=== PATIENT | female | born 1945 | race African-American/Black ===

== ENCOUNTER 2019-06-29 23:54 | Inpatient (IN) ==
[2019-06-30 01:24] LABS: Albumin 4.5 G/DL (3.4-5.0); Bilirubin,Total 0.6 MG/DL (0.2-1.0); Calcium 10.2 MG/DL (8.5-10.1); Total Protein 8.7 G/DL (6.4-8.3)
[2019-06-30 01:48] LABS: Basophils # 0.1 10*3/uL (0.0-0.2); Basophils % 0.7 % (0.0-0.8); Eosinophils # 0.7 10*3/uL (0.0-0.87); Eosinophils % 7.2 % (0.00-10.9); Hematocrit 32.6 VOL% (35.7-47.0); Hemoglobin 12.2 GM/DL (12.0-16.0); Immature Granulocytes % 1.2 %; Immature Granulocytes Absolute 0.11 #; Lymphocytes # 2.1 10*3/uL (1.4-4.0); Lymphocytes % 23.1 % (21.3-54.2); Mean Corpuscular HGB Conc 37.4 GM/DL (32-36); Mean Corpuscular Volume 89.8 FL (87-102); Mean Platelet Volume 10.3 FL (9.6-12.0); Monocytes % 11.5 % (1.7-12.7); Neutrophils % 56.3 % (38.7-73.9); Platelet Count 351 T/CUMM (130-400); Red Blood Count 3.63 MC/CUMM (3.8-5.5); Red Cell Distribution Width 12.3 % (9.3-17.3); White Blood Count 9.1 T/CUMM (4-12)
[2019-06-30] MEDS ORDERED: SODIUM CHLORIDE 0.9% 1,000 ML IV STA (01:50)
[2019-06-30 02:30] LABS: Apearance,Urine CLEAR (Clear); Bilirubin,Urine Negative (Negative); Blood, Urine Negative (Negative); Glucose,Urine (UA) Negative (Negative); Ketones,Urine Negative (Negative); Nitrite,Urine Negative (Negative); Protein,Urine Negative; RBC,Urine <1 /HPF (0-4); Urine Color Yellow (Yellow); Urine Specific Gravity 1.012 (1.001-1.035); Urine Urobilinogen < 2.0 EU/DL (0.2-1.0); WBC,Urine <1 /HPF (0-6)
[2019-06-30] MEDS ORDERED: ALBUTEROL 2.5 MG/3 ML NEB RESP TX PRN (02:58)
[2019-06-30] MEDS ORDERED: ACETAMINOPHEN 325 MG TABLET PO PRN (03:21)
[2019-06-30] MEDS ORDERED: GLUCAGON 1 MG VIAL IM PRN ×2 (03:21→09:45)
[2019-06-30] MEDS ORDERED: ONDANSETRON 4 MG/2 ML VIAL IV PRN (03:21)
[2019-06-30] MEDS ORDERED: DEXTROSE 50% 25 GM/50 ML VIAL IV PRN (03:21)
[2019-06-30] MEDS: SODIUM CHLORIDE 0.9% 1,000 ML IV SCH ×2 (04:37→17:22)
[2019-06-30] MEDS: PANTOPRAZOLE 40 MG VIAL IV SCH (04:39)
[2019-06-30] MEDS: LEVOTHYROXINE 100 MCG TABLET PO SCH (06:15)
[2019-06-30] MEDS: MULTIVITAMIN (BEROCCA) TABLET PO SCH (08:11)
[2019-06-30] MEDS: METOPROLOL TARTRATE 100 MG TABLET PO SCH (08:12)
[2019-06-30] MEDS: ATORVASTATIN 10 MG TABLET PO SCH (08:12)
[2019-06-30] MEDS: FUROSEMIDE 40 MG TABLET PO SCH ×2 (08:12→20:05)
[2019-06-30] MEDS: ASCORBIC ACID 500 MG TABLET PO SCH (08:13)
[2019-06-30] MEDS: FERROUS SULFATE 325 MG TABLET PO SCH (08:13)
[2019-06-30] MEDS: OXYBUTYNIN 5 MG TABLET PO SCH ×2 (08:13→20:05)
[2019-06-30] MEDS: ASPIRIN EC 81 MG TABLET PO SCH (08:14)
[2019-06-30] MEDS: VITAMIN E 400 UNIT CAPSULE PO SCH (08:14)
[2019-06-30] MEDS: MULTIVITAMIN (CENTRUM) TABLET PO SCH (08:14)
[2019-06-30 08:15] LABS: Albumin 3.5 G/DL (3.4-5.0); Bilirubin,Total 0.4 MG/DL (0.2-1.0); Calcium 8.9 MG/DL (8.5-10.1); Osmolality,Calculated 241.6 MOS/KG (273-304); Thyroid Stimulating Hormone 3.55 uIU/ml (0.358-3.74); Total Protein 7.1 G/DL (6.4-8.3)
[2019-06-30] MEDS: ENOXAPARIN 40 MG/0.4 ML SYRINGE SUBCUT SCH (08:15)
[2019-06-30] MEDS ORDERED: DEXTROSE 10% 25 GM/250 ML BAG IV PRN (09:45)
[2019-06-30] MEDS: SODIUM CHLORIDE 1 GM TABLET PO SCH ×2 (10:37→20:05)
[2019-06-30] MEDS: CALCIUM (CARBONATE)/VITAMIN D 600 MG-400 UNIT TABLET PO SCH (10:38)
[2019-06-30] MEDS: glipiZIDE 5 MG TABLET PO SCH (10:38)
[2019-06-30 14:23] LABS: Calcium 9.4 MG/DL (8.5-10.1); Osmolality,Calculated 249.8 MOS/KG (273-304)
[2019-06-30] MEDS: POTASSIUM CHLORIDE 20 MEQ TABLET PO PRN ×3 (15:33→20:05)
[2019-06-30] MEDS: INSULIN REGULAR 100 UNIT/ML SUBCUT SCH (15:44)
[2019-06-30 18:58] LABS: Calcium 8.7 MG/DL (8.5-10.1); Osmolality,Calculated 253.5 MOS/KG (273-304)
[2019-07-01 02:19] LABS: Calcium 8.4 MG/DL (8.5-10.1); Osmolality,Calculated 264.9 MOS/KG (273-304)
[2019-07-01] MEDS: PANTOPRAZOLE 40 MG VIAL IV SCH (02:43)
[2019-07-01] MEDS: LEVOTHYROXINE 100 MCG TABLET PO SCH (05:24)
[2019-07-01] MEDS: SODIUM CHLORIDE 0.9% 1,000 ML IV SCH ×3 (05:25→18:42)
[2019-07-01 07:26] LABS: Calcium 8.4 MG/DL (8.5-10.1); Osmolality,Calculated 263.8 MOS/KG (273-304)
[2019-07-01] MEDS: VITAMIN E 400 UNIT CAPSULE PO SCH (08:25)
[2019-07-01] MEDS: ENOXAPARIN 40 MG/0.4 ML SYRINGE SUBCUT SCH (08:25)
[2019-07-01] MEDS: SODIUM CHLORIDE 1 GM TABLET PO SCH ×2 (08:25→20:44)
[2019-07-01] MEDS: glipiZIDE 5 MG TABLET PO SCH (08:25)
[2019-07-01] MEDS: MULTIVITAMIN (BEROCCA) TABLET PO SCH (08:26)
[2019-07-01] MEDS: CALCIUM (CARBONATE)/VITAMIN D 600 MG-400 UNIT TABLET PO SCH (08:26)
[2019-07-01] MEDS: ATORVASTATIN 10 MG TABLET PO SCH (08:26)
[2019-07-01] MEDS: ASCORBIC ACID 500 MG TABLET PO SCH (08:27)
[2019-07-01] MEDS: OXYBUTYNIN 5 MG TABLET PO SCH ×2 (08:27→20:44)
[2019-07-01] MEDS: FERROUS SULFATE 325 MG TABLET PO SCH (08:27)
[2019-07-01] MEDS: ASPIRIN EC 81 MG TABLET PO SCH (08:27)
[2019-07-01] MEDS: INSULIN REGULAR 100 UNIT/ML SUBCUT SCH ×2 (08:28→16:05)
[2019-07-01] MEDS: METOPROLOL TARTRATE 100 MG TABLET PO SCH (08:28)
[2019-07-01] MEDS: FUROSEMIDE 40 MG TABLET PO SCH (08:28)
[2019-07-01] MEDS: MULTIVITAMIN (CENTRUM) TABLET PO SCH (08:28)
[2019-07-01] MEDS: POTASSIUM CHLORIDE 20 MEQ TABLET PO PRN ×2 (21:48→23:47)
[2019-07-02] MEDS: PANTOPRAZOLE 40 MG VIAL IV SCH (02:58)
[2019-07-02 05:13] LABS: Basophils # 0.1 10*3/uL (0.0-0.2); Basophils % 0.9 % (0.0-0.8); Eosinophils # 0.7 10*3/uL (0.0-0.87); Eosinophils % 10.8 % (0.00-10.9); Hematocrit 27.4 VOL% (35.7-47.0); Hemoglobin 9.7 GM/DL (12.0-16.0); Immature Granulocytes % 0.5 %; Immature Granulocytes Absolute 0.03 #; Lymphocytes # 2.2 10*3/uL (1.4-4.0); Lymphocytes % 33.7 % (21.3-54.2); Mean Corpuscular HGB Conc 35.4 GM/DL (32-36); Mean Corpuscular Volume 93.5 FL (87-102); Mean Platelet Volume 9.7 FL (9.6-12.0); Neutrophils % 37.1 % (38.7-73.9); Platelet Count 254 T/CUMM (130-400); Red Blood Count 2.93 MC/CUMM (3.8-5.5); Red Cell Distribution Width 12.8 % (9.3-17.3); White Blood Count 6.5 T/CUMM (4-12)
[2019-07-02 05:35] LABS: Eosinophils 9 % (0-10); Hypochromasia 1+; Lymphocytes 38 % (20-55); Platelet Estimate Adequate; Segmented Neutrophils 34 % (50-85); Total Cells Counted 100
[2019-07-02] MEDS: LEVOTHYROXINE 100 MCG TABLET PO SCH (06:52)
[2019-07-02] MEDS: SODIUM CHLORIDE 0.9% 1,000 ML IV SCH ×2 (06:52→15:09)
[2019-07-02] MEDS: INSULIN REGULAR 100 UNIT/ML SUBCUT SCH (08:00)
[2019-07-02] MEDS: ASCORBIC ACID 500 MG TABLET PO SCH (08:45)
[2019-07-02] MEDS: OXYBUTYNIN 5 MG TABLET PO SCH (08:45)
[2019-07-02] MEDS: FERROUS SULFATE 325 MG TABLET PO SCH (08:45)
[2019-07-02] MEDS: MULTIVITAMIN (CENTRUM) TABLET PO SCH (08:45)
[2019-07-02] MEDS: glipiZIDE 5 MG TABLET PO SCH (08:45)
[2019-07-02] MEDS: ATORVASTATIN 10 MG TABLET PO SCH (08:48)
[2019-07-02] MEDS: METOPROLOL TARTRATE 100 MG TABLET PO SCH (08:48)
[2019-07-02] MEDS: MULTIVITAMIN (BEROCCA) TABLET PO SCH (08:48)
[2019-07-02] MEDS: CALCIUM (CARBONATE)/VITAMIN D 600 MG-400 UNIT TABLET PO SCH (08:48)
[2019-07-02] MEDS: VITAMIN E 400 UNIT CAPSULE PO SCH (08:48)
[2019-07-02] MEDS: ASPIRIN EC 81 MG TABLET PO SCH (08:48)
[2019-07-02] MEDS: ENOXAPARIN 40 MG/0.4 ML SYRINGE SUBCUT SCH (08:49)
[2019-07-02] MEDS: SODIUM CHLORIDE 1 GM TABLET PO SCH (08:55)
[2019-07-02 09:52] LABS: Calcium 8.6 MG/DL (8.5-10.1); Osmolality,Calculated 270.2 MOS/KG (273-304)
[2019-07-02 13:04] VITALS: BP 149/55
== END 2019-07-02 15:00 | disposition home health service (06) | DRG 640 ==
LOC: N.ED 23:54 → SUATTDRO 06-30 02:58 → N.EDINP 06-30 02:58 → N.CC 06-30 03:56 → N.5E 06-30 16:51
PROVIDERS: ADMIT Family Medicine; ATTEND Emergency Medicine

== ENCOUNTER 2019-11-05 16:02 | Inpatient (IN) ==
[2019-11-05] MEDS ORDERED: SODIUM CHLORIDE 0.9% 500 ML IV STA (17:17)
[2019-11-05 17:58] LABS: Basophils # 0.1 10*3/uL (0.0-0.2); Basophils % 0.8 % (0.0-0.8); Eosinophils # 0.2 10*3/uL (0.0-0.87); Eosinophils % 2.3 % (0.00-10.9); Hematocrit 36.5 VOL% (35.7-47.0); Hemoglobin 12.7 GM/DL (12.0-16.0); Immature Granulocytes % 1.9 %; Immature Granulocytes Absolute 0.19 #; Lymphocytes # 2.4 10*3/uL (1.4-4.0); Lymphocytes % 24.6 % (21.3-54.2); Mean Corpuscular HGB Conc 34.8 GM/DL (32-36); Mean Corpuscular Volume 94.6 FL (87-102); Mean Platelet Volume 9.5 FL (9.6-12.0); Monocytes % 11.8 % (1.7-12.7); Neutrophils % 58.6 % (38.7-73.9); Platelet Count 299 T/CUMM (130-400); Red Blood Count 3.86 MC/CUMM (3.8-5.5); White Blood Count 9.8 T/CUMM (4-12)
[2019-11-05 18:03] LABS: Ovalocytes Few; Platelet Estimate Adequate
[2019-11-05 18:04] LABS: Anisocytosis Slight
[2019-11-05 18:06] LABS: INR 0.9; PT Patient Result 9.9 SECS (9.6-12.2)
[2019-11-05] MEDS ORDERED: hydrALAZINE 20 MG/1 ML VIAL IV STA (18:36)
[2019-11-05 19:14] LABS: Apearance,Urine CLEAR (Clear); Bilirubin,Urine Negative (Negative); Blood, Urine Negative (Negative); Glucose,Urine (UA) Negative (Negative); Ketones,Urine Negative (Negative); Nitrite,Urine Negative (Negative); Protein,Urine Negative; Urine Color Yellow (Yellow); Urine Specific Gravity 1.003 (1.001-1.035); Urine Urobilinogen < 2.0 EU/DL (0.2-1.0); WBC,Urine <1 /HPF (0-6)
[2019-11-05 19:20] LABS: Barbiturates Screen,Urine Negative (Negative); Benzodiazepines Screen,Urine Negative (Negative); Cannabinoid Screen,Urine Negative (Negative); Opiate Screen,Urine Negative (Negative); Phencyclidine Screen,Urine Negative (Negative)
[2019-11-05 19:57] LABS: Alanine Aminotransferase 22 U/L (13-56); Alkaline Phosphatase 80 U/L (45-117); Aspartate Amino Transferase 18 U/L (0-37); Blood Urea Nitrogen 15 MG/DL (7-18); Calcium 9.9 MG/DL (8.5-10.1); Estimated Glom Filtration Rate 76 ML/MIN; Glucose 107 MG/DL (74-106); Osmolality,Calculated 244.1 MOS/KG (273-304); Total Protein 7.1 G/DL (6.4-8.3); Troponin I < 0.015 NG/ML (0.00-0.045)
[2019-11-05] MEDS ORDERED: HYDROCORTISONE 100 MG VIAL IV STA (20:05)
[2019-11-05] MEDS ORDERED: MAGNESIUM SULF RIDER 2 GM in PREMIX 1 EACH IV STA (20:05)
[2019-11-05] MEDS ORDERED: ACETAMINOPHEN 325 MG TABLET PO PRN (20:45)
[2019-11-05] MEDS ORDERED: hydrALAZINE 20 MG/1 ML VIAL IV PRN (20:45)
[2019-11-05] MEDS ORDERED: ALBUTEROL/IPRATROPIUM 3 ML NEB RESP TX PRN (20:45)
[2019-11-05] MEDS ORDERED: ONDANSETRON 4 MG/2 ML VIAL IV PRN (20:45)
[2019-11-05] MEDS ORDERED: ALUMINUM/MAGNES/SIMETH MAX STR 30 ML UDCUP PO PRN (20:45)
[2019-11-05] MEDS ORDERED: NICOTINE 21 MG/24 HR PATCH TRANSDERM PRN (20:45)
[2019-11-05] MEDS ORDERED: POLYETHYLENE GLYCOL POWDER 255 GM BOTTLE PO PRN (21:53)
[2019-11-05] MEDS: metFORMIN 850 MG TABLET PO SCH (22:36)
[2019-11-05 22:56] LABS: Calcium 9.6 MG/DL (8.5-10.1); Osmolality,Calculated 246.2 MOS/KG (273-304)
[2019-11-05] MEDS ORDERED: MAGNESIUM SULF RIDER 4 GM in PREMIX 1 EACH IV ONE (23:00)
[2019-11-05] MEDS: ATORVASTATIN 10 MG TABLET PO SCH (23:39)
[2019-11-06] MEDS ORDERED: DONEPEZIL 10 MG TABLET PO SCH
[2019-11-06 05:22] LABS: Calcium 8.9 MG/DL (8.5-10.1); Osmolality,Calculated 253.1 MOS/KG (273-304)
[2019-11-06] MEDS: LEVOTHYROXINE 100 MCG TABLET PO SCH (06:12)
[2019-11-06] MEDS: FERROUS SULFATE 325 MG TABLET PO SCH ×2 (06:12→17:52)
[2019-11-06 08:48] LABS: Calcium 8.9 MG/DL (8.5-10.1); Osmolality,Calculated 257.8 MOS/KG (273-304)
[2019-11-06] MEDS: ASCORBIC ACID 500 MG TABLET PO SCH ×2 (09:47→10:13)
[2019-11-06] MEDS: SODIUM CHLORIDE 0.9% 1,000 ML IV SCH ×3 (09:47→21:13)
[2019-11-06] MEDS: DOCUSATE SODIUM 100 MG CAPSULE PO SCH ×2 (09:47→10:13)
[2019-11-06] MEDS: MULTIVITAMIN (BEROCCA) TABLET PO SCH ×2 (09:48→10:14)
[2019-11-06] MEDS: metFORMIN 850 MG TABLET PO SCH (09:48)
[2019-11-06] MEDS: ASPIRIN EC 81 MG TABLET PO SCH ×2 (09:48→10:12)
[2019-11-06] MEDS: VITAMIN E 400 UNIT CAPSULE PO SCH ×2 (09:48→10:13)
[2019-11-06] MEDS ORDERED: DEXTROSE 50% 25 GM/50 ML VIAL IV PRN (12:16)
[2019-11-06] MEDS ORDERED: GLUCAGON 1 MG VIAL IM PRN (12:16)
[2019-11-06 12:26] LABS: Apearance,Urine CLEAR (Clear); Bilirubin,Urine Negative (Negative); Blood, Urine Negative (Negative); Glucose,Urine (UA) 50 mg/dL (Negative); Hyaline Casts,Urine 1 /LPF (0-3); Ketones,Urine 20 mg/dL (Negative); Mucus,Urine Occasional /LPF (Occasional); Nitrite,Urine Negative (Negative); Protein,Urine Negative; RBC,Urine 1 /HPF (0-4); Squamous Epithelial Cell,Urine Occasional /HPF (0-10); Transitional Epi Cells,Urine Occasional /HPF (<1); Urine Color Yellow (Yellow); Urine Specific Gravity 1.009 (1.001-1.035); Urine Urobilinogen < 2.0 EU/DL (0.2-1.0); WBC,Urine <1 /HPF (0-6)
[2019-11-06 12:31] LABS: Protein/Creatinine Ratio,Urine 0.4 RATIO
[2019-11-06 12:59] LABS: Calcium 8.8 MG/DL (8.5-10.1); Osmolality,Calculated 258.5 MOS/KG (273-304)
[2019-11-06 13:56] LABS: Uric Acid,Urine Random 16.6 MG/DL
[2019-11-06] MEDS: ENOXAPARIN 40 MG/0.4 ML SYRINGE SUBCUT SCH (14:08)
[2019-11-06 16:42] LABS: Osmolality,Calculated 255.5 MOS/KG (273-304)
[2019-11-06] MEDS: INSULIN REGULAR 100 UNIT/ML SUBCUT SCH ×2 (17:48→21:13)
[2019-11-06] MEDS: METOPROLOL TARTRATE 100 MG TABLET PO SCH (17:48)
[2019-11-06] MEDS: CALCIUM (CARBONATE)/VITAMIN D 600 MG-400 UNIT TABLET PO SCH (17:48)
[2019-11-06 20:49] LABS: Calcium 7.8 MG/DL (8.5-10.1); Osmolality,Calculated 266.9 MOS/KG (273-304)
[2019-11-06] MEDS: ATORVASTATIN 10 MG TABLET PO SCH (21:13)
[2019-11-07 01:04] LABS: Calcium 8.9 MG/DL (8.5-10.1); Osmolality,Calculated 259.8 MOS/KG (273-304)
[2019-11-07 04:54] LABS: Basophils # 0.1 10*3/uL (0.0-0.2); Basophils % 0.5 % (0.0-0.8); Eosinophils % 0.3 % (0.00-10.9); Hematocrit 34.2 VOL% (35.7-47.0); Hemoglobin 11.6 GM/DL (12.0-16.0); Immature Granulocytes % 0.8 %; Lymphocytes # 1.3 10*3/uL (1.4-4.0); Lymphocytes % 10.5 % (21.3-54.2); Mean Corpuscular HGB Conc 33.9 GM/DL (32-36); Mean Corpuscular Volume 96.1 FL (87-102); Mean Platelet Volume 9.5 FL (9.6-12.0); Monocytes % 10.6 % (1.7-12.7); Neutrophils % 77.3 % (38.7-73.9); Platelet Count 352 T/CUMM (130-400); Red Blood Count 3.56 MC/CUMM (3.8-5.5); Red Cell Distribution Width 13.1 % (9.3-17.3); White Blood Count 12.5 T/CUMM (4-12)
[2019-11-07 05:22] LABS: Calcium 8.8 MG/DL (8.5-10.1); Osmolality,Calculated 263.8 MOS/KG (273-304)
[2019-11-07] MEDS: SODIUM CHLORIDE 0.9% 1,000 ML IV SCH ×2 (06:32→09:13)
[2019-11-07 06:49] LABS: Risk Ratio 1.83
[2019-11-07] MEDS: LEVOTHYROXINE 100 MCG TABLET PO SCH (07:00)
[2019-11-07] MEDS: FERROUS SULFATE 325 MG TABLET PO SCH ×2 (07:00→17:05)
[2019-11-07] MEDS: DOCUSATE SODIUM 100 MG CAPSULE PO SCH (09:12)
[2019-11-07] MEDS: MULTIVITAMIN (BEROCCA) TABLET PO SCH (09:12)
[2019-11-07] MEDS: ASCORBIC ACID 500 MG TABLET PO SCH (09:12)
[2019-11-07] MEDS: INSULIN REGULAR 100 UNIT/ML SUBCUT SCH ×4 (09:12→21:47)
[2019-11-07] MEDS: VITAMIN E 400 UNIT CAPSULE PO SCH (09:12)
[2019-11-07] MEDS: ASPIRIN EC 81 MG TABLET PO SCH (09:12)
[2019-11-07] MEDS: ENOXAPARIN 40 MG/0.4 ML SYRINGE SUBCUT SCH (12:24)
[2019-11-07] MEDS: METOPROLOL TARTRATE 100 MG TABLET PO SCH (17:05)
[2019-11-07] MEDS: CALCIUM (CARBONATE)/VITAMIN D 600 MG-400 UNIT TABLET PO SCH (17:05)
[2019-11-07] MEDS: ATORVASTATIN 10 MG TABLET PO SCH (21:47)
[2019-11-08] MEDS: SODIUM CHLORIDE 0.9% 1,000 ML IV SCH ×2 (00:05→14:07)
[2019-11-08 03:39] LABS: Basophils # 0.1 10*3/uL (0.0-0.2); Basophils % 0.8 % (0.0-0.8); Eosinophils # 0.3 10*3/uL (0.0-0.87); Hematocrit 27.3 VOL% (35.7-47.0); Hemoglobin 9.3 GM/DL (12.0-16.0); Immature Granulocytes % 0.8 %; Immature Granulocytes Absolute 0.07 #; Lymphocytes # 2.6 10*3/uL (1.4-4.0); Lymphocytes % 28.6 % (21.3-54.2); Mean Corpuscular HGB Conc 34.1 GM/DL (32-36); Mean Corpuscular Volume 95.8 FL (87-102); Mean Platelet Volume 9.2 FL (9.6-12.0); Monocytes % 13.4 % (1.7-12.7); Neutrophils % 53.4 % (38.7-73.9); Platelet Count 269 T/CUMM (130-400); Red Blood Count 2.85 MC/CUMM (3.8-5.5); Red Cell Distribution Width 13.3 % (9.3-17.3); White Blood Count 8.9 T/CUMM (4-12)
[2019-11-08 03:57] LABS: Alanine Aminotransferase 26 U/L (13-56); Albumin 2.7 G/DL (3.4-5.0); Alkaline Phosphatase 58 U/L (45-117); Aspartate Amino Transferase 34 U/L (0-37); Bilirubin,Total < 0.39 MG/DL (0.2-1.0); Blood Urea Nitrogen 8 MG/DL (7-18); Calcium 7.9 MG/DL (8.5-10.1); Estimated Glom Filtration Rate 93 ML/MIN; Glucose 132 MG/DL (74-106); Osmolality,Calculated 265.4 MOS/KG (273-304); Total Protein 5.6 G/DL (6.4-8.3)
[2019-11-08] MEDS: LEVOTHYROXINE 100 MCG TABLET PO SCH (05:38)
[2019-11-08] MEDS: FERROUS SULFATE 325 MG TABLET PO SCH ×2 (05:38→17:27)
[2019-11-08] MEDS: ASPIRIN EC 81 MG TABLET PO SCH (09:57)
[2019-11-08] MEDS: MULTIVITAMIN (BEROCCA) TABLET PO SCH (09:57)
[2019-11-08] MEDS: DOCUSATE SODIUM 100 MG CAPSULE PO SCH (09:57)
[2019-11-08] MEDS: VITAMIN E 400 UNIT CAPSULE PO SCH (09:57)
[2019-11-08] MEDS: INSULIN REGULAR 100 UNIT/ML SUBCUT SCH ×4 (09:57→21:11)
[2019-11-08] MEDS: ASCORBIC ACID 500 MG TABLET PO SCH (12:01)
[2019-11-08] MEDS ORDERED: POTASSIUM CHLORIDE 20 MEQ TABLET PO ONE (12:30)
[2019-11-08] MEDS: ENOXAPARIN 40 MG/0.4 ML SYRINGE SUBCUT SCH (14:06)
[2019-11-08] MEDS ORDERED: TUBERCULIN SKIN TEST 0.1 ML SYRINGE INTRADERM ONE (14:32)
[2019-11-08] MEDS: CALCIUM (CARBONATE)/VITAMIN D 600 MG-400 UNIT TABLET PO SCH (17:27)
[2019-11-08] MEDS: METOPROLOL TARTRATE 100 MG TABLET PO SCH (17:28)
[2019-11-08] MEDS: ATORVASTATIN 10 MG TABLET PO SCH (21:05)
[2019-11-09 05:34] LABS: Basophils # 0.1 10*3/uL (0.0-0.2); Basophils % 1.1 % (0.0-0.8); Eosinophils # 0.5 10*3/uL (0.0-0.87); Hematocrit 28.6 VOL% (35.7-47.0); Hemoglobin 9.4 GM/DL (12.0-16.0); Immature Granulocytes Absolute 0.08 #; Lymphocytes % 25.6 % (21.3-54.2); Mean Corpuscular HGB Conc 32.9 GM/DL (32-36); Mean Corpuscular Volume 98.3 FL (87-102); Mean Platelet Volume 9.7 FL (9.6-12.0); Neutrophils % 54.3 % (38.7-73.9); Platelet Count 284 T/CUMM (130-400); Red Blood Count 2.91 MC/CUMM (3.8-5.5); Red Cell Distribution Width 13.4 % (9.3-17.3)
[2019-11-09] MEDS: SODIUM CHLORIDE 0.9% 1,000 ML IV SCH ×2 (05:37→11:42)
[2019-11-09 05:50] LABS: Alanine Aminotransferase 26 U/L (13-56); Albumin 2.7 G/DL (3.4-5.0); Alkaline Phosphatase 73 U/L (45-117); Aspartate Amino Transferase 23 U/L (0-37); Bilirubin,Total < 0.39 MG/DL (0.2-1.0); Blood Urea Nitrogen 7 MG/DL (7-18); Calcium 8.1 MG/DL (8.5-10.1); Estimated Glom Filtration Rate 91 ML/MIN; Glucose 149 MG/DL (74-106); Osmolality,Calculated 270.1 MOS/KG (273-304); Total Protein 5.7 G/DL (6.4-8.3)
[2019-11-09] MEDS: FERROUS SULFATE 325 MG TABLET PO SCH (06:23)
[2019-11-09] MEDS: LEVOTHYROXINE 100 MCG TABLET PO SCH (06:23)
[2019-11-09] MEDS: ASCORBIC ACID 500 MG TABLET PO SCH (08:55)
[2019-11-09] MEDS: VITAMIN E 400 UNIT CAPSULE PO SCH (08:55)
[2019-11-09] MEDS: DOCUSATE SODIUM 100 MG CAPSULE PO SCH (08:55)
[2019-11-09] MEDS: MULTIVITAMIN (BEROCCA) TABLET PO SCH (08:55)
[2019-11-09] MEDS: ASPIRIN EC 81 MG TABLET PO SCH (08:55)
[2019-11-09] MEDS ORDERED: FUROSEMIDE 20 MG/2 ML VIAL IV ONE (08:58)
[2019-11-09] MEDS: INSULIN REGULAR 100 UNIT/ML SUBCUT SCH ×2 (09:44→11:49)
[2019-11-09 11:33] VITALS: BP 154/75
[2019-11-09] MEDS: ENOXAPARIN 40 MG/0.4 ML SYRINGE SUBCUT SCH (11:49)
== END 2019-11-09 13:07 | DRG 640 ==
LOC: N.ED 16:02 → N.EDINP 20:45 → N.2E 21:12 → N.CC 11-06 06:57 → N.5E 11-07 10:39
PROVIDERS: ADMIT Internal Medicine; ATTEND Internal Medicine

== ENCOUNTER 2020-01-18 12:48 | Inpatient (IN) ==
[2020-01-18] MEDS ORDERED: SODIUM CHLORIDE 0.9% 500 ML IV STA (13:20)
[2020-01-18 15:08] LABS: Alanine Aminotransferase 20 U/L (13-56); Albumin 3.4 G/DL (3.4-5.0); Alkaline Phosphatase 72 U/L (45-117); Aspartate Amino Transferase 20 U/L (0-37); Blood Urea Nitrogen 10 MG/DL (7-18); Calcium 9.1 MG/DL (8.5-10.1); Estimated Glom Filtration Rate 67 ML/MIN; Ferritin 721.9 ng/ml (8-252); Glucose 154 MG/DL (74-106); Osmolality,Calculated 241.3 MOS/KG (273-304); Total Protein 7.2 G/DL (6.4-8.3); Troponin I < 0.015 NG/ML (0.00-0.045)
[2020-01-18] MEDS ORDERED: ONDANSETRON 4 MG/2 ML VIAL IV PRN (15:33)
[2020-01-18] MEDS ORDERED: DEXTROSE 50% 25 GM/50 ML VIAL IV PRN (15:33)
[2020-01-18] MEDS ORDERED: hydrALAZINE 20 MG/1 ML VIAL IV PRN (15:33)
[2020-01-18] MEDS ORDERED: GLUCAGON 1 MG VIAL IM PRN (15:33)
[2020-01-18] MEDS ORDERED: POLYETHYLENE GLYCOL POWDER 17 GM PACK PO PRN (16:20)
[2020-01-18 17:21] LABS: Apearance,Urine Slightly Hazy (Clear); Bacteria,Urine Few /HPF (Few); Bilirubin,Urine Negative (Negative); Blood, Urine Negative (Negative); Glucose,Urine (UA) Negative (Negative); Ketones,Urine Negative (Negative); Nitrite,Urine Negative (Negative); Protein,Urine Negative; RBC,Urine 2 /HPF (0-4); Urine Color Yellow (Yellow); Urine Specific Gravity 1.002 (1.001-1.035); Urine Urobilinogen < 2.0 EU/DL (0.2-1.0); WBC,Urine 56 /HPF (0-6)
[2020-01-18 18:00] LABS: Basophils # 0.1 10*3/uL (0.0-0.2); Basophils % 0.7 % (0.0-0.8); Eosinophils # 0.2 10*3/uL (0.0-0.87); Eosinophils % 1.8 % (0.00-10.9); Hemoglobin 12.6 GM/DL (12.0-16.0); Immature Granulocytes % 1.3 %; Immature Granulocytes Absolute 0.12 #; Lymphocytes # 2.8 10*3/uL (1.4-4.0); Lymphocytes % 30.3 % (21.3-54.2); Mean Corpuscular Volume 90.7 FL (87-102); Monocytes % 14.1 % (1.7-12.7); Neutrophils % 51.8 % (38.7-73.9); Red Blood Count 3.86 MC/CUMM (3.8-5.5); Red Cell Distribution Width 12.3 % (9.3-17.3); White Blood Count 9.2 T/CUMM (4-12)
[2020-01-18] MEDS ORDERED: INSULIN LISPRO 100 UNIT/ML SUBCUT SCH (18:00)
[2020-01-18 18:01] LABS: Platelet Count 316 T/CUMM (130-400)
[2020-01-18] MEDS: SODIUM CHLORIDE 0.9% 1,000 ML IV SCH (18:05)
[2020-01-18] MEDS: INSULIN LISPRO 100 UNIT/ML SUBCUT SCH ×2 (18:11→21:35)
[2020-01-18 18:14] LABS: INR 0.9; PT Patient Result 10.2 SECS (9.8-11.9); Partial Thromboplastin Time 25.1 SECS (23.9-33.8)
[2020-01-18 18:17] LABS: Barbiturates Screen,Urine Negative (Negative); Benzodiazepines Screen,Urine Negative (Negative); Cannabinoid Screen,Urine Negative (Negative); Opiate Screen,Urine Negative (Negative); Phencyclidine Screen,Urine Negative (Negative)
[2020-01-18] MEDS: FERROUS SULFATE 325 MG TABLET PO SCH (18:22)
[2020-01-18] MEDS: METOPROLOL TARTRATE 100 MG TABLET PO SCH (18:22)
[2020-01-18] MEDS ORDERED: MAGNESIUM SULF RIDER 2 GM in PREMIX 1 EACH IV ONE (18:41)
[2020-01-18] MEDS: cefTRIAXone 1,000 MG in SYRINGE 1 EACH IV SCH (21:32)
[2020-01-18] MEDS: ATORVASTATIN 10 MG TABLET PO SCH (21:35)
[2020-01-18] MEDS: DONEPEZIL 10 MG TABLET PO SCH (21:35)
[2020-01-18] MEDS: POTASSIUM PHOS/SOD PHOS POWDER 250 MG PACK PO SCH (21:35)
[2020-01-19] MEDS: SODIUM CHLORIDE 0.9% 1,000 ML IV SCH (03:47)
[2020-01-19 05:21] LABS: Basophils # 0.1 10*3/uL (0.0-0.2); Basophils % 0.9 % (0.0-0.8); Eosinophils # 0.3 10*3/uL (0.0-0.87); Eosinophils % 2.9 % (0.00-10.9); Hematocrit 37.1 VOL% (35.7-47.0); Immature Granulocytes % 1.2 %; Immature Granulocytes Absolute 0.11 #; Lymphocytes % 31.2 % (21.3-54.2); Mean Platelet Volume 9.6 FL (9.6-12.0); Monocytes % 20.1 % (1.7-12.7); Neutrophils % 43.7 % (38.7-73.9); Platelet Count 277 T/CUMM (130-400); Red Blood Count 3.99 MC/CUMM (3.8-5.5); Red Cell Distribution Width 12.4 % (9.3-17.3); White Blood Count 9.5 T/CUMM (4-12)
[2020-01-19] MEDS: FERROUS SULFATE 325 MG TABLET PO SCH ×2 (05:38→18:50)
[2020-01-19] MEDS: LEVOTHYROXINE 100 MCG TABLET PO SCH (05:38)
[2020-01-19 05:43] LABS: Acanthocytes Few; Burr Cells Few; Eosinophils 4 % (0-10); Hypochromasia 1+; Lymphocytes 33 % (20-55); Microcytosis Slight; Segmented Neutrophils 44 % (50-85); Total Cells Counted 100
[2020-01-19 05:44] LABS: Platelet Estimate Normal; Polychromasia Slight; Target Cells Slight
[2020-01-19 06:37] LABS: Calcium 8.8 MG/DL (8.5-10.1); Osmolality,Calculated 257.9 MOS/KG (273-304)
[2020-01-19] MEDS: INSULIN LISPRO 100 UNIT/ML SUBCUT SCH ×4 (07:49→20:33)
[2020-01-19] MEDS: ASCORBIC ACID 500 MG TABLET PO SCH (09:58)
[2020-01-19] MEDS: cefTRIAXone 1,000 MG in SYRINGE 1 EACH IV SCH (09:58)
[2020-01-19] MEDS: POTASSIUM PHOS/SOD PHOS POWDER 250 MG PACK PO SCH ×3 (09:58→20:31)
[2020-01-19] MEDS: DOCUSATE SODIUM 100 MG CAPSULE PO SCH (09:59)
[2020-01-19] MEDS ORDERED: ENOXAPARIN 30 MG/0.3 ML SYRINGE SUBCUT SCH (14:30)
[2020-01-19] MEDS: METOPROLOL TARTRATE 100 MG TABLET PO SCH (18:50)
[2020-01-19] MEDS: ATORVASTATIN 10 MG TABLET PO SCH (20:31)
[2020-01-19] MEDS: DONEPEZIL 10 MG TABLET PO SCH (20:32)
[2020-01-20] MEDS: LEVOTHYROXINE 100 MCG TABLET PO SCH (05:15)
[2020-01-20] MEDS: FERROUS SULFATE 325 MG TABLET PO SCH (05:15)
[2020-01-20 05:37] LABS: Basophils # 0.1 10*3/uL (0.0-0.2); Basophils % 1.1 % (0.0-0.8); Eosinophils # 0.4 10*3/uL (0.0-0.87); Eosinophils % 4.6 % (0.00-10.9); Hematocrit 35.2 VOL% (35.7-47.0); Hemoglobin 12.2 GM/DL (12.0-16.0); Immature Granulocytes Absolute 0.08 #; Lymphocytes # 2.4 10*3/uL (1.4-4.0); Lymphocytes % 29.9 % (21.3-54.2); Mean Corpuscular HGB Conc 34.7 GM/DL (32-36); Mean Corpuscular Volume 94.1 FL (87-102); Mean Platelet Volume 9.2 FL (9.6-12.0); Monocytes % 14.9 % (1.7-12.7); Neutrophils % 48.5 % (38.7-73.9); Platelet Count 335 T/CUMM (130-400); Red Blood Count 3.74 MC/CUMM (3.8-5.5); Red Cell Distribution Width 12.8 % (9.3-17.3); White Blood Count 7.9 T/CUMM (4-12)
[2020-01-20 05:57] LABS: Calcium 8.8 MG/DL (8.5-10.1); Osmolality,Calculated 264.5 MOS/KG (273-304)
[2020-01-20] MEDS: INSULIN LISPRO 100 UNIT/ML SUBCUT SCH ×2 (07:30→11:57)
[2020-01-20] MEDS: POTASSIUM PHOS/SOD PHOS POWDER 250 MG PACK PO SCH (09:21)
[2020-01-20] MEDS: cefTRIAXone 1,000 MG in SYRINGE 1 EACH IV SCH (09:21)
[2020-01-20] MEDS: DOCUSATE SODIUM 100 MG CAPSULE PO SCH (09:21)
[2020-01-20] MEDS: ASCORBIC ACID 500 MG TABLET PO SCH (09:21)
[2020-01-20 12:16] VITALS: BP 162/49
[2020-01-20] MEDS ORDERED: ENOXAPARIN 40 MG/0.4 ML SYRINGE SUBCUT SCH (14:30)
== END 2020-01-20 14:07 | disposition home or self-care (01) | DRG 640 ==
LOC: N.ED 12:48 → SUATTDRO 15:32 → N.EDINP 15:32 → N.3E 16:21
PROVIDERS: ADMIT Internal Medicine; ATTEND Internal Medicine

== ENCOUNTER 2020-03-07 01:03 | Observation (INO) ==
[2020-03-07] MEDS ORDERED: hydrALAZINE 20 MG/1 ML VIAL IV STA (01:42)
[2020-03-07 02:29] LABS: Basophils # 0.1 10*3/uL (0.0-0.2); Basophils % 0.6 % (0.0-0.8); Eosinophils # 0.3 10*3/uL (0.0-0.87); Eosinophils % 3.1 % (0.00-10.9); Hematocrit 37.8 VOL% (35.7-47.0); Immature Granulocytes % 1.1 %; Immature Granulocytes Absolute 0.12 #; Lymphocytes # 2.4 10*3/uL (1.4-4.0); Lymphocytes % 21.9 % (21.3-54.2); Mean Corpuscular HGB Conc 34.4 GM/DL (32-36); Mean Platelet Volume 8.9 FL (9.6-12.0); Monocytes % 11.5 % (1.7-12.7); Neutrophils % 61.8 % (38.7-73.9); Platelet Count 299 T/CUMM (130-400); Red Blood Count 4.02 MC/CUMM (3.8-5.5); Red Cell Distribution Width 12.2 % (9.3-17.3); White Blood Count 10.8 T/CUMM (4-12)
[2020-03-07 02:48] LABS: Albumin 3.9 G/DL (3.4-5.0); Bilirubin,Total 0.4 MG/DL (0.2-1.0); Calcium 10.2 MG/DL (8.5-10.1); Osmolality,Calculated 249.8 MOS/KG (273-304); Total Protein 8.1 G/DL (6.4-8.3)
[2020-03-07 02:56] LABS: Apearance,Urine CLEAR (Clear); Bilirubin,Urine Negative (Negative); Blood, Urine Negative (Negative); Glucose,Urine (UA) Negative (Negative); Ketones,Urine Negative (Negative); Mucus,Urine Occasional /LPF (Occasional); Nitrite,Urine Negative (Negative); Protein,Urine Negative; RBC,Urine 1 /HPF (0-4); Squamous Epithelial Cell,Urine Occasional /HPF (0-10); Urine Color Straw (Yellow); Urine Specific Gravity 1.003 (1.001-1.035); Urine Urobilinogen < 2.0 EU/DL (0.2-1.0); WBC,Urine 1 /HPF (0-6)
[2020-03-07] MEDS ORDERED: cloNIDine 0.1 MG TABLET ONE (03:01)
[2020-03-07] MEDS ORDERED: cloNIDine 0.1 MG TABLET PO STA (03:01)
[2020-03-07] MEDS ORDERED: DEXTROSE 50% 25 GM/50 ML VIAL IV PRN ×2 (04:58)
[2020-03-07] MEDS ORDERED: ONDANSETRON 4 MG/2 ML VIAL IV PRN (04:58)
[2020-03-07] MEDS ORDERED: GLUCAGON 1 MG VIAL IM PRN (04:58)
[2020-03-07] MEDS ORDERED: ACETAMINOPHEN 325 MG TABLET PO PRN (04:58)
[2020-03-07] MEDS ORDERED: SODIUM CHLORIDE 0.9% 1,000 ML IV SCH (05:00)
[2020-03-07] MEDS ORDERED: cloNIDine 0.1 MG TABLET PO PRN (05:14)
[2020-03-07] MEDS ORDERED: ENOXAPARIN 40 MG/0.4 ML SYRINGE ONE (05:16)
[2020-03-07 08:01] LABS: Thyroid Stimulating Hormone 3.17 uIU/ml (0.358-3.74)
[2020-03-07] MEDS: ENOXAPARIN 40 MG/0.4 ML SYRINGE SUBCUT SCH (08:15)
[2020-03-07] MEDS: INSULIN REGULAR 100 UNIT/ML SUBCUT SCH ×4 (08:58→21:01)
[2020-03-07] MEDS: hydrALAZINE 20 MG/1 ML VIAL IV PRN (12:00)
[2020-03-07] MEDS: LEVOTHYROXINE 150 MCG TABLET PO SCH (12:19)
[2020-03-07] MEDS: SODIUM CHLORIDE 1 GM TABLET PO SCH (14:35)
[2020-03-07] MEDS: SODIUM CHLORIDE 0.9% 1,000 ML IV SCH (17:35)
[2020-03-07] MEDS ORDERED: METOPROLOL TARTRATE 100 MG TABLET PO SCH (18:00)
[2020-03-07] MEDS ORDERED: DONEPEZIL 10 MG TABLET PO SCH (21:00)
[2020-03-08 05:51] LABS: Basophils # 0.1 10*3/uL (0.0-0.2); Basophils % 0.6 % (0.0-0.8); Eosinophils # 0.2 10*3/uL (0.0-0.87); Eosinophils % 2.7 % (0.00-10.9); Hematocrit 34.5 VOL% (35.7-47.0); Hemoglobin 11.8 GM/DL (12.0-16.0); Immature Granulocytes % 1.1 %; Immature Granulocytes Absolute 0.09 #; Lymphocytes # 1.2 10*3/uL (1.4-4.0); Lymphocytes % 14.6 % (21.3-54.2); Mean Corpuscular HGB Conc 34.2 GM/DL (32-36); Mean Platelet Volume 9.2 FL (9.6-12.0); Monocytes % 12.6 % (1.7-12.7); Neutrophils % 68.4 % (38.7-73.9); Platelet Count 314 T/CUMM (130-400); Red Blood Count 3.67 MC/CUMM (3.8-5.5); Red Cell Distribution Width 12.4 % (9.3-17.3); White Blood Count 8.4 T/CUMM (4-12)
[2020-03-08 06:11] LABS: Calcium 8.8 MG/DL (8.5-10.1); Osmolality,Calculated 264.5 MOS/KG (273-304)
[2020-03-08] MEDS: LEVOTHYROXINE 150 MCG TABLET PO SCH (06:33)
[2020-03-08] MEDS: INSULIN REGULAR 100 UNIT/ML SUBCUT SCH ×2 (07:34→12:40)
[2020-03-08] MEDS: ENOXAPARIN 40 MG/0.4 ML SYRINGE SUBCUT SCH (07:37)
[2020-03-08] MEDS: hydrALAZINE 20 MG/1 ML VIAL IV PRN (07:38)
[2020-03-08] MEDS: SODIUM CHLORIDE 0.9% 1,000 ML IV SCH (07:43)
[2020-03-08 12:30] VITALS: BP 161/57
[2020-03-08] MEDS: SODIUM CHLORIDE 1 GM TABLET PO SCH (14:47)
== END 2020-03-08 14:46 | disposition home health service (06) ==
LOC: N.ED 01:03 → N.EDINP 04:56 → SUATTDRO 04:56 → INTOOBSV 04:56 → N.TELEN 05:17
PROVIDERS: ADMIT Emergency Medicine; ATTEND Internal Medicine

== ENCOUNTER 2020-05-31 11:30 | Inpatient (IN) ==
[2020-05-31] MEDS ORDERED: LABETALOL 20 MG/4 ML SYRINGE IV STA (12:20)
[2020-05-31] MEDS ORDERED: LABETALOL 100 MG/20 ML VIAL IV ONE (12:21)
[2020-05-31 12:59] LABS: Basophils # 0.1 10*3/uL (0.0-0.2); Basophils % 0.6 % (0.0-0.8); Eosinophils # 0.1 10*3/uL (0.0-0.87); Eosinophils % 0.8 % (0.00-10.9); Hematocrit 36.8 VOL% (35.7-47.0); Hemoglobin 12.8 GM/DL (12.0-16.0); Immature Granulocytes % 0.8 %; Immature Granulocytes Absolute 0.09 #; Lymphocytes # 1.5 10*3/uL (1.4-4.0); Lymphocytes % 13.8 % (21.3-54.2); Mean Corpuscular HGB Conc 34.8 GM/DL (32-36); Mean Corpuscular Volume 93.6 FL (87-102); Mean Platelet Volume 9.3 FL (9.6-12.0); Monocytes % 7.6 % (1.7-12.7); Neutrophils % 76.4 % (38.7-73.9); Platelet Count 353 T/CUMM (130-400); Red Blood Count 3.93 MC/CUMM (3.8-5.5); Red Cell Distribution Width 12.2 % (9.3-17.3); White Blood Count 10.9 T/CUMM (4-12)
[2020-05-31 13:07] LABS: Bilirubin,Urine Negative (Negative); Blood, Urine Small mg/dL (Negative); Glucose,Urine (UA) Negative (Negative); Ketones,Urine 20 mg/dL (Negative); Mucus,Urine Occasional /LPF (Occasional); Nitrite,Urine Negative (Negative); Protein,Urine 100 MG/DL; RBC,Urine 13 /HPF (0-4); Urine Appearance CLOUDY (Clear); Urine Color Yellow (Yellow); Urine Specific Gravity 1.011 (1.001-1.035); Urine Urobilinogen < 2.0 EU/DL (0.2-1.0); WBC,Urine 609 /HPF (0-6)
[2020-05-31 13:18] LABS: Bilirubin,Total 0.4 MG/DL (0.2-1.0); Calcium 9.8 MG/DL (8.5-10.1); Osmolality,Calculated 264.7 MOS/KG (273-304); Total Protein 8.1 G/DL (6.4-8.3)
[2020-05-31] MEDS ORDERED: MAGNESIUM SULF RIDER 1 GM in PREMIX 1 EACH IV STA (14:13)
[2020-05-31] MEDS ORDERED: cefTRIAXone 1,000 MG in SODIUM CHLORIDE 0.9% 100 ML IV STA (14:18)
[2020-05-31] MEDS ORDERED: niCARdipine 25 MG/10 ML VIAL IV ONE (14:23)
[2020-05-31] MEDS ORDERED: cefTRIAXone 1,000 MG VIAL ONE (14:23)
[2020-05-31] MEDS ORDERED: SODIUM CHLORIDE 0.9% 100 ML IV ONE (14:23)
[2020-05-31] MEDS ORDERED: niCARdipine INJ 25 MG in SODIUM CHLORIDE 0.9% 240 ML IV PRN (14:44)
[2020-05-31] MEDS ORDERED: ALBUTEROL 2.5 MG/3 ML NEB RESP TX PRN (15:42)
[2020-05-31] MEDS ORDERED: ONDANSETRON 4 MG/2 ML VIAL IV PRN (15:42)
[2020-05-31] MEDS ORDERED: MAGNESIUM SULF RIDER 4 GM in PREMIX 1 EACH IV PRN (15:54)
[2020-05-31] MEDS: SODIUM CHLORIDE 0.9% 1,000 ML IV SCH (17:01)
[2020-05-31] MEDS: INSULIN REGULAR 100 UNIT/ML SUBCUT SCH ×2 (17:14→20:21)
[2020-05-31] MEDS: FERROUS SULFATE 325 MG TABLET PO SCH (17:51)
[2020-05-31] MEDS: DOCUSATE SODIUM 100 MG CAPSULE PO SCH (17:51)
[2020-05-31] MEDS: CALCIUM (CARBONATE)/VITAMIN D 600 MG-400 UNIT TABLET PO SCH (17:51)
[2020-05-31] MEDS: PIPERACILLIN/TAZOBACTAM 3,375 MG in SODIUM CHLORIDE 0.9% 100 ML IV SCH (17:53)
[2020-05-31] MEDS ORDERED: METOPROLOL TARTRATE 100 MG TABLET PO SCH (18:00)
[2020-05-31] MEDS: OXYBUTYNIN 5 MG TABLET PO SCH (20:21)
[2020-05-31] MEDS: ATORVASTATIN 10 MG TABLET PO SCH (20:21)
[2020-05-31] MEDS: ENOXAPARIN 40 MG/0.4 ML SYRINGE SUBCUT SCH (20:21)
[2020-05-31] MEDS: cloNIDine 0.1 MG TABLET PO PRN (21:06)
[2020-05-31] MEDS: DONEPEZIL 10 MG TABLET PO SCH (23:14)
[2020-06-01] MEDS: PIPERACILLIN/TAZOBACTAM 3,375 MG in SODIUM CHLORIDE 0.9% 100 ML IV SCH ×4 (00:11→23:09)
[2020-06-01 03:15] LABS: Basophils % 0.4 % (0.0-0.8); Eosinophils % 0.3 % (0.00-10.9); Hematocrit 29.7 VOL% (35.7-47.0); Hemoglobin 10.5 GM/DL (12.0-16.0); Immature Granulocytes % 0.9 %; Immature Granulocytes Absolute 0.09 #; Lymphocytes # 1.7 10*3/uL (1.4-4.0); Mean Corpuscular HGB Conc 35.4 GM/DL (32-36); Mean Corpuscular Volume 91.1 FL (87-102); Mean Platelet Volume 9.3 FL (9.6-12.0); Monocytes % 12.9 % (1.7-12.7); Neutrophils % 69.5 % (38.7-73.9); Platelet Count 304 T/CUMM (130-400); Red Blood Count 3.26 MC/CUMM (3.8-5.5); Red Cell Distribution Width 12.1 % (9.3-17.3); White Blood Count 10.3 T/CUMM (4-12)
[2020-06-01 03:30] LABS: Calcium 8.5 MG/DL (8.5-10.1); Osmolality,Calculated 261.8 MOS/KG (273-304)
[2020-06-01] MEDS: MAGNESIUM SULF RIDER 2 GM in PREMIX 1 EACH IV PRN ×2 (04:26→06:38)
[2020-06-01] MEDS: FERROUS SULFATE 325 MG TABLET PO SCH ×2 (05:07→17:25)
[2020-06-01] MEDS: LEVOTHYROXINE 150 MCG TABLET PO SCH (05:07)
[2020-06-01] MEDS: cloNIDine 0.1 MG TABLET PO PRN (05:07)
[2020-06-01] MEDS: SODIUM CHLORIDE 0.9% 1,000 ML IV SCH ×2 (06:37→21:01)
[2020-06-01] MEDS ORDERED: POTASSIUM CHLORIDE RIDER 10 MEQ in PREMIX 1 EACH IV PRN (07:20)
[2020-06-01] MEDS ORDERED: POTASSIUM CHLORIDE 20 MEQ TABLET PO PRN (07:20)
[2020-06-01] MEDS: INSULIN REGULAR 100 UNIT/ML SUBCUT SCH ×4 (08:20→21:02)
[2020-06-01] MEDS: ASCORBIC ACID 500 MG TABLET PO SCH (08:36)
[2020-06-01] MEDS: OXYBUTYNIN 5 MG TABLET PO SCH ×2 (08:37→21:02)
[2020-06-01] MEDS: MULTIVITAMIN (BEROCCA) TABLET PO SCH (08:37)
[2020-06-01] MEDS: ASPIRIN EC 81 MG TABLET PO SCH (08:38)
[2020-06-01] MEDS: PANTOPRAZOLE 40 MG TABLET PO SCH (08:39)
[2020-06-01] MEDS ORDERED: VITAMIN E 400 UNIT CAPSULE PO SCH (09:00)
[2020-06-01] MEDS ORDERED: MULTIVITAMIN (CENTRUM) TABLET PO SCH (09:00)
[2020-06-01] MEDS ORDERED: cloNIDine 0.1 MG TABLET PO PRN ×2 (10:08→10:30)
[2020-06-01] MEDS ORDERED: cloNIDine 0.1 MG TABLET PO ONE (10:09)
[2020-06-01] MEDS: VANCOMYCIN INJ 750 MG in SODIUM CHLORIDE 0.9% 250 ML IV SCH (13:50)
[2020-06-01] MEDS ORDERED: SODIUM CHLORIDE 1 GM TABLET PO SCH (14:30)
[2020-06-01] MEDS ORDERED: DEXTROSE 50% 25 GM/50 ML VIAL IV PRN (15:09)
[2020-06-01] MEDS ORDERED: GLUCAGON 1 MG VIAL IM PRN (15:09)
[2020-06-01] MEDS: DOCUSATE SODIUM 100 MG CAPSULE PO SCH (16:55)
[2020-06-01] MEDS: CALCIUM (CARBONATE)/VITAMIN D 600 MG-400 UNIT TABLET PO SCH (17:25)
[2020-06-01] MEDS: ENOXAPARIN 40 MG/0.4 ML SYRINGE SUBCUT SCH (21:01)
[2020-06-01] MEDS: ATORVASTATIN 10 MG TABLET PO SCH (21:02)
[2020-06-01] MEDS: METOPROLOL TARTRATE 50 MG TABLET PO SCH (21:05)
[2020-06-01] MEDS: DONEPEZIL 10 MG TABLET PO SCH (23:10)
[2020-06-02] MEDS: VANCOMYCIN INJ 750 MG in SODIUM CHLORIDE 0.9% 250 ML IV SCH (03:25)
[2020-06-02 05:53] LABS: Basophils # 0.1 10*3/uL (0.0-0.2); Basophils % 0.6 % (0.0-0.8); Eosinophils # 0.3 10*3/uL (0.0-0.87); Eosinophils % 2.8 % (0.00-10.9); Hematocrit 29.8 VOL% (35.7-47.0); Hemoglobin 10.6 GM/DL (12.0-16.0); Immature Granulocytes % 0.8 %; Immature Granulocytes Absolute 0.08 #; Lymphocytes # 1.8 10*3/uL (1.4-4.0); Lymphocytes % 16.6 % (21.3-54.2); Mean Corpuscular HGB Conc 35.6 GM/DL (32-36); Mean Corpuscular Volume 91.7 FL (87-102); Mean Platelet Volume 9.5 FL (9.6-12.0); Monocytes % 14.2 % (1.7-12.7); Platelet Count 289 T/CUMM (130-400); Red Blood Count 3.25 MC/CUMM (3.8-5.5); Red Cell Distribution Width 12.1 % (9.3-17.3); White Blood Count 10.6 T/CUMM (4-12)
[2020-06-02] MEDS: FERROUS SULFATE 325 MG TABLET PO SCH (06:25)
[2020-06-02] MEDS: LEVOTHYROXINE 150 MCG TABLET PO SCH (06:25)
[2020-06-02] MEDS ORDERED: LEVOTHYROXINE 112 MCG TABLET PO SCH (07:42)
[2020-06-02] MEDS: INSULIN REGULAR 100 UNIT/ML SUBCUT SCH ×2 (07:42→11:57)
[2020-06-02] MEDS: ASCORBIC ACID 500 MG TABLET PO SCH (08:26)
[2020-06-02] MEDS: PIPERACILLIN/TAZOBACTAM 3,375 MG in SODIUM CHLORIDE 0.9% 100 ML IV SCH (08:26)
[2020-06-02] MEDS: OXYBUTYNIN 5 MG TABLET PO SCH (08:26)
[2020-06-02] MEDS: ASPIRIN EC 81 MG TABLET PO SCH (08:26)
[2020-06-02] MEDS: METOPROLOL TARTRATE 50 MG TABLET PO SCH (08:26)
[2020-06-02] MEDS: PANTOPRAZOLE 40 MG TABLET PO SCH (08:26)
[2020-06-02] MEDS: MULTIVITAMIN (BEROCCA) TABLET PO SCH (08:26)
[2020-06-02] MEDS: SODIUM CHLORIDE 0.9% 1,000 ML IV SCH (08:27)
[2020-06-02 11:19] VITALS: BP 182/56
[2020-06-02] MEDS ORDERED: DOCUSATE SODIUM 100 MG CAPSULE PO SCH (15:54)
== END 2020-06-02 14:10 | disposition home health service (06) | DRG 689 ==
LOC: N.ED 11:30 → SUATTDRO 15:42 → N.EDINP 15:42 → N.ICU 16:18 → N.3E 06-01 11:41
PROVIDERS: ADMIT Internal Medicine; ATTEND Internal Medicine

== ENCOUNTER 2021-04-20 21:19 | Inpatient (IN) ==
[2021-04-21] MEDS ORDERED: SODIUM CHLORIDE 0.9% 500 ML IV STA (03:13)
[2021-04-21 03:49] LABS: Basophils # 0.1 10*3/uL (0.0-0.2); Basophils % 0.3 % (0.0-0.8); Eosinophils % 0.1 % (0.00-10.9); Hematocrit 32.7 VOL% (35.7-47.0); Hemoglobin 11.1 GM/DL (12.0-16.0); Immature Granulocytes % 1.9 %; Immature Granulocytes Absolute 0.36 #; Lymphocytes # 1.8 10*3/uL (1.4-4.0); Lymphocytes % 9.5 % (21.3-54.2); Mean Corpuscular HGB Conc 33.9 GM/DL (32-36); Mean Corpuscular Volume 94.8 FL (87-102); Monocytes % 11.8 % (1.7-12.7); Neutrophils % 76.4 % (38.7-73.9); Platelet Count 239 T/CUMM (130-400); Red Blood Count 3.45 MC/CUMM (3.8-5.5); White Blood Count 19.1 T/CUMM (4-12)
[2021-04-21 04:08] LABS: Acanthocytes Few; Microcytosis 1+
[2021-04-21 04:09] LABS: Hypochromasia Slight
[2021-04-21 04:10] LABS: Platelet Estimate Normal
[2021-04-21 04:46] LABS: PT Patient Result 11.1 SECS (10.5-12.0)
[2021-04-21 04:49] LABS: Alanine Aminotransferase 23 U/L (13-56); Albumin 3.2 G/DL (3.4-5.0); Alkaline Phosphatase 64 U/L (45-117); Aspartate Amino Transferase 21 U/L (0-37); Blood Urea Nitrogen 14 MG/DL (7-18); Calcium 9.3 MG/DL (8.5-10.1); Carbon Dioxide 22 MMOL/L (21-32); Estimated Glom Filtration Rate 98 ML/MIN; Glucose 222 MG/DL (74-106); Osmolality,Calculated 262.2 MOS/KG (273-304); Potassium 3.9 MMOL/L (3.5-5.1); Sodium 127 MMOL/L (136-145)
[2021-04-21] MEDS ORDERED: MAGNESIUM SULF RIDER 2 GM/50 ML PREMIX IV STA (05:04)
[2021-04-21 05:11] LABS: Barbiturates Screen,Urine Negative (Negative); Benzodiazepines Screen,Urine Negative (Negative); Cannabinoid Screen,Urine Negative (Negative); Opiate Screen,Urine Negative (Negative); Phencyclidine Screen,Urine Negative (Negative)
[2021-04-21 05:13] LABS: Bacteria,Urine Occasional /HPF (Few); Bilirubin,Urine Negative (Negative); Blood, Urine Negative (Negative); Glucose,Urine (UA) Negative (Negative); Ketones,Urine 5 mg/dL (Negative); Mucus,Urine Occasional /LPF (Occasional); Nitrite,Urine Negative (Negative); Protein,Urine 100 MG/DL; RBC,Urine 11 /HPF (0-4); Squamous Epithelial Cell,Urine Occasional /HPF (0-10); Urine Appearance CLOUDY (Clear); Urine Color Yellow (Yellow); Urine Specific Gravity 1.014 (1.001-1.035); Urine Urobilinogen < 2.0 EU/DL (0.2-1.0)
[2021-04-21] MEDS ORDERED: GLUCAGON 1 MG VIAL IM PRN (06:16)
[2021-04-21] MEDS ORDERED: DEXTROSE 50% 25 GM/50 ML VIAL IV PRN ×2 (06:16→07:50)
[2021-04-21] MEDS ORDERED: ACETAMINOPHEN 325 MG TABLET PO PRN (06:16)
[2021-04-21] MEDS ORDERED: SODIUM CHLORIDE 0.9% 1,000 ML IV SCH (06:30)
[2021-04-21] MEDS: cefTRIAXone 1,000 MG in SYRINGE 1 EACH IV SCH (06:49)
[2021-04-21] MEDS: HEPARIN 5,000 UNIT/1 ML VIAL SUBCUT SCH ×2 (08:58→21:07)
[2021-04-21] MEDS ORDERED: POLYETHYLENE GLYCOL POWDER 17 GM PACK PO PRN (11:55)
[2021-04-21 12:12] LABS: Calcium 9.2 MG/DL (8.5-10.1); Osmolality,Calculated 269.5 MOS/KG (273-304); Potassium 3.7 MMOL/L (3.5-5.1)
[2021-04-21] MEDS: INSULIN LISPRO 100 UNIT/ML SUBCUT SCH ×2 (12:33→17:11)
[2021-04-21] MEDS: MAGNESIUM CHLORIDE 64 MG TABLET PO SCH (12:36)
[2021-04-21] MEDS: SODIUM CHLORIDE 1 GM TABLET PO SCH (12:36)
[2021-04-21] MEDS: ASPIRIN EC 81 MG TABLET PO SCH (12:36)
[2021-04-21] MEDS ORDERED: metFORMIN 850 MG TABLET PO SCH (17:00)
[2021-04-21] MEDS: METOPROLOL SUCCINATE XL 100 MG TABLET PO SCH (17:11)
[2021-04-21] MEDS: CALCIUM (CARBONATE)/VITAMIN D 600 MG-400 UNIT TABLET PO SCH (17:11)
[2021-04-21] MEDS: OXYBUTYNIN 5 MG TABLET PO SCH (21:06)
[2021-04-21] MEDS: hydrALAZINE 20 MG/1 ML VIAL IV PRN (21:06)
[2021-04-21] MEDS: DONEPEZIL 10 MG TABLET PO SCH (21:06)
[2021-04-22] MEDS: INSULIN LISPRO 100 UNIT/ML SUBCUT SCH ×4 (03:21→17:47)
[2021-04-22 05:44] LABS: Basophils # 0.1 10*3/uL (0.0-0.2); Basophils % 0.4 % (0.0-0.8); Eosinophils # 0.1 10*3/uL (0.0-0.87); Eosinophils % 0.7 % (0.00-10.9); Hematocrit 32.4 VOL% (35.7-47.0); Hemoglobin 11.5 GM/DL (12.0-16.0); Immature Granulocytes % 2.3 %; Immature Granulocytes Absolute 0.39 #; Lymphocytes # 1.7 10*3/uL (1.4-4.0); Lymphocytes % 10.2 % (21.3-54.2); Mean Corpuscular HGB Conc 35.5 GM/DL (32-36); Mean Corpuscular Volume 92.3 FL (87-102); Mean Platelet Volume 9.9 FL (9.6-12.0); Monocytes % 15.1 % (1.7-12.7); Neutrophils % 71.3 % (38.7-73.9); Platelet Count 263 T/CUMM (130-400); Red Blood Count 3.51 MC/CUMM (3.8-5.5); Red Cell Distribution Width 12.8 % (9.3-17.3); White Blood Count 16.8 T/CUMM (4-12)
[2021-04-22] MEDS: LEVOTHYROXINE 125 MCG TABLET PO SCH (06:04)
[2021-04-22 06:05] LABS: Calcium 9.2 MG/DL (8.5-10.1); Osmolality,Calculated 266.5 MOS/KG (273-304); Potassium 3.6 MMOL/L (3.5-5.1)
[2021-04-22] MEDS: cefTRIAXone 1,000 MG in SYRINGE 1 EACH IV SCH (06:05)
[2021-04-22 06:31] LABS: Thyroid Stimulating Hormone 2.72 uIU/ml (0.358-3.74)
[2021-04-22] MEDS: DOCUSATE SODIUM 100 MG CAPSULE PO SCH (08:18)
[2021-04-22] MEDS: glipiZIDE 5 MG TABLET PO SCH (08:19)
[2021-04-22] MEDS: ASPIRIN EC 81 MG TABLET PO SCH (08:19)
[2021-04-22] MEDS: hydrALAZINE 20 MG/1 ML VIAL IV PRN ×2 (08:19→16:45)
[2021-04-22] MEDS: MAGNESIUM CHLORIDE 64 MG TABLET PO SCH (08:19)
[2021-04-22] MEDS: HEPARIN 5,000 UNIT/1 ML VIAL SUBCUT SCH ×2 (08:19→22:06)
[2021-04-22] MEDS: OXYBUTYNIN 5 MG TABLET PO SCH ×2 (08:19→22:06)
[2021-04-22] MEDS: METFORMIN 850 MG PO SCH ×2 (08:20→16:08)
[2021-04-22] MEDS ORDERED: LABETALOL 20 MG/4 ML SYRINGE IV ONE (08:20)
[2021-04-22] MEDS ORDERED: cefTRIAXone 2,000 MG in SYRINGE 1 EACH IV SCH (08:22)
[2021-04-22] MEDS ORDERED: LOSARTAN 50 MG TABLET PO SCH (09:00)
[2021-04-22] MEDS: cefTRIAXone 2,000 MG in SODIUM CHLORIDE 0.9% 100 ML IV SCH (10:24)
[2021-04-22] MEDS: LOSARTAN 50 MG TABLET PO SCH (10:24)
[2021-04-22] MEDS: SODIUM CHLORIDE 1 GM TABLET PO SCH (11:36)
[2021-04-22] MEDS: CALCIUM (CARBONATE)/VITAMIN D 600 MG-400 UNIT TABLET PO SCH (17:24)
[2021-04-22] MEDS: METOPROLOL SUCCINATE XL 100 MG TABLET PO SCH (17:24)
[2021-04-22 18:46] LABS: Osmolality, Urine 478 mOsm/kg (150 - 1150)
[2021-04-22] MEDS: DONEPEZIL 10 MG TABLET PO SCH (22:06)
[2021-04-22] MEDS: POLYETHYLENE GLYCOL POWDER 17 GM PACK PO SCH (22:06)
[2021-04-22 22:38] LABS: Osmolality, Serum 267 mOsm/kg (275 - 295)
[2021-04-23] MEDS: INSULIN LISPRO 100 UNIT/ML SUBCUT SCH ×4 (01:01→17:35)
[2021-04-23] MEDS: LEVOTHYROXINE 125 MCG TABLET PO SCH (06:28)
[2021-04-23 07:16] LABS: Basophils # 0.1 10*3/uL (0.0-0.2); Basophils % 0.4 % (0.0-0.8); Eosinophils # 0.3 10*3/uL (0.0-0.87); Eosinophils % 1.6 % (0.00-10.9); Hematocrit 33.2 VOL% (35.7-47.0); Hemoglobin 11.7 GM/DL (12.0-16.0); Immature Granulocytes % 4.3 %; Immature Granulocytes Absolute 0.68 #; Lymphocytes # 2.3 10*3/uL (1.4-4.0); Lymphocytes % 14.7 % (21.3-54.2); Mean Corpuscular HGB Conc 35.2 GM/DL (32-36); Mean Corpuscular Volume 92.2 FL (87-102); Mean Platelet Volume 9.6 FL (9.6-12.0); Platelet Count 279 T/CUMM (130-400); Red Cell Distribution Width 12.8 % (9.3-17.3); White Blood Count 15.9 T/CUMM (4-12)
[2021-04-23 07:33] LABS: Calcium 9.3 MG/DL (8.5-10.1); Osmolality,Calculated 259.4 MOS/KG (273-304); Potassium 3.8 MMOL/L (3.5-5.1)
[2021-04-23 07:38] LABS: Band Neutrophils 5 % (0-10); Eosinophils 1 % (0-10); Lymphocytes 17 % (20-55); Myelocytes 1 %; Platelet Estimate Normal; Segmented Neutrophils 62 % (50-85); Total Cells Counted 100
[2021-04-23 07:39] LABS: Anisocytosis 1+; Burr Cells 1+
[2021-04-23] MEDS: cefTRIAXone 2,000 MG in SODIUM CHLORIDE 0.9% 100 ML IV SCH (09:36)
[2021-04-23] MEDS: HEPARIN 5,000 UNIT/1 ML VIAL SUBCUT SCH ×2 (09:36→20:55)
[2021-04-23] MEDS: SODIUM CHLORIDE 1 GM TABLET PO SCH ×2 (09:37→20:56)
[2021-04-23] MEDS: OXYBUTYNIN 5 MG TABLET PO SCH ×2 (09:37→20:56)
[2021-04-23] MEDS: LOSARTAN 50 MG TABLET PO SCH (09:37)
[2021-04-23] MEDS: ASPIRIN EC 81 MG TABLET PO SCH (09:37)
[2021-04-23] MEDS: glipiZIDE 5 MG TABLET PO SCH (09:37)
[2021-04-23] MEDS: MAGNESIUM CHLORIDE 64 MG TABLET PO SCH (09:37)
[2021-04-23] MEDS: POLYETHYLENE GLYCOL POWDER 17 GM PACK PO SCH ×2 (09:37→20:55)
[2021-04-23] MEDS: DOCUSATE SODIUM 100 MG CAPSULE PO SCH (09:38)
[2021-04-23] MEDS: METFORMIN 850 MG PO SCH ×2 (09:38→17:36)
[2021-04-23] MEDS ORDERED: glipiZIDE 5 MG TABLET PO SCH (16:30)
[2021-04-23] MEDS: METOPROLOL SUCCINATE XL 100 MG TABLET PO SCH (17:35)
[2021-04-23] MEDS: CALCIUM (CARBONATE)/VITAMIN D 600 MG-400 UNIT TABLET PO SCH (17:35)
[2021-04-23] MEDS: DONEPEZIL 10 MG TABLET PO SCH (20:56)
[2021-04-24] MEDS: INSULIN LISPRO 100 UNIT/ML SUBCUT SCH ×3 (01:55→12:09)
[2021-04-24] MEDS: LEVOTHYROXINE 125 MCG TABLET PO SCH (05:37)
[2021-04-24 06:31] LABS: Basophils # 0.1 10*3/uL (0.0-0.2); Basophils % 0.7 % (0.0-0.8); Eosinophils # 0.2 10*3/uL (0.0-0.87); Eosinophils % 1.2 % (0.00-10.9); Hematocrit 31.8 VOL% (35.7-47.0); Hemoglobin 10.8 GM/DL (12.0-16.0); Immature Granulocytes % 5.7 %; Immature Granulocytes Absolute 0.87 #; Lymphocytes # 1.5 10*3/uL (1.4-4.0); Mean Corpuscular Volume 93.3 FL (87-102); Monocytes % 17.7 % (1.7-12.7); Neutrophils % 64.7 % (38.7-73.9); Platelet Count 322 T/CUMM (130-400); Red Blood Count 3.41 MC/CUMM (3.8-5.5); Red Cell Distribution Width 13.1 % (9.3-17.3); White Blood Count 15.3 T/CUMM (4-12)
[2021-04-24 07:03] LABS: Band Neutrophils 4 % (0-10); Eosinophils 1 % (0-10); Lymphocytes 14 % (20-55); Platelet Estimate Normal; Segmented Neutrophils 67 % (50-85); Total Cells Counted 100
[2021-04-24 07:04] LABS: Anisocytosis 2+
[2021-04-24 07:05] LABS: Burr Cells 2+
[2021-04-24 07:06] LABS: Calcium 9.3 MG/DL (8.5-10.1); Osmolality,Calculated 279.2 MOS/KG (273-304); Potassium 3.7 MMOL/L (3.5-5.1)
[2021-04-24] MEDS ORDERED: cephALEXin 500 MG CAPSULE PO SCH (09:00)
[2021-04-24] MEDS: DOCUSATE SODIUM 100 MG CAPSULE PO SCH (09:10)
[2021-04-24] MEDS: HEPARIN 5,000 UNIT/1 ML VIAL SUBCUT SCH (09:10)
[2021-04-24] MEDS: METFORMIN 850 MG PO SCH (09:10)
[2021-04-24] MEDS: LOSARTAN 50 MG TABLET PO SCH (09:10)
[2021-04-24] MEDS: glipiZIDE 5 MG TABLET PO SCH (09:10)
[2021-04-24] MEDS: OXYBUTYNIN 5 MG TABLET PO SCH (09:10)
[2021-04-24] MEDS: ASPIRIN EC 81 MG TABLET PO SCH (09:10)
[2021-04-24] MEDS: MAGNESIUM CHLORIDE 64 MG TABLET PO SCH (09:11)
[2021-04-24] MEDS: POLYETHYLENE GLYCOL POWDER 17 GM PACK PO SCH (09:11)
[2021-04-24] MEDS: SODIUM CHLORIDE 1 GM TABLET PO SCH (09:11)
[2021-04-24 12:25] VITALS: BP 156/42
== END 2021-04-24 15:59 | disposition home health service (06) | DRG 689 ==
LOC: N.EDINP 21:19 → N.ED 21:19 → N.3E 04-21 07:05
PROVIDERS: ADMIT Hospitalist; ATTEND Hospitalist

== ENCOUNTER 2022-01-03 16:02 | Inpatient (IN) ==
[2022-01-03] MEDS ORDERED: SODIUM CHLORIDE 0.9% 1,000 ML IV STA (16:43)
[2022-01-03 17:25] LABS: Basophils # 0.1 10*3/uL (0.0-0.2); Basophils % 0.7 % (0.0-0.8); Eosinophils # 0.4 10*3/uL (0.0-0.87); Eosinophils % 3.4 % (0.00-10.9); Hematocrit 28.5 VOL% (35.7-47.0); Hemoglobin 9.4 GM/DL (12.0-16.0); Immature Granulocytes % 1.4 %; Immature Granulocytes Absolute 0.17 #; Lymphocytes # 3.5 10*3/uL (1.4-4.0); Lymphocytes % 28.7 % (21.3-54.2); Mean Corpuscular Volume 98.3 FL (87-102); Mean Platelet Volume 10.1 FL (9.6-12.0); Monocytes # 1.2 10*3/uL (0.11-0.8); Monocytes % 9.8 % (1.7-12.7); Platelet Count 364 T/CUMM (130-400); Red Cell Distribution Width 12.4 % (9.3-17.3); White Blood Count 12.3 T/CUMM (4-12)
[2022-01-03 17:44] LABS: Alanine Aminotransferase 32 U/L (13-56); Albumin 3.9 G/DL (3.4-5.0); Alkaline Phosphatase 73 U/L (45-117); Aspartate Amino Transferase 20 U/L (0-37); Bilirubin,Total < 0.39 MG/DL (0.20-1.00); Blood Urea Nitrogen 15 MG/DL (7-18); Calcium 10.3 MG/DL (8.5-10.1); Carbon Dioxide 22 MMOL/L (21-32); Chloride 99 MMOL/L (98-107); Estimated Glom Filtration Rate 63 ML/MIN; Glucose 153 MG/DL (74-106); Osmolality,Calculated 265.7 MOS/KG (273-304); Potassium 4.3 MMOL/L (3.5-5.1); Sodium 131 MMOL/L (136-145); Total Protein 7.8 G/DL (6.4-8.2)
[2022-01-03] MEDS ORDERED: SODIUM CHLORIDE 0.9% 500 ML IV STA (17:47)
[2022-01-03] MEDS ORDERED: CEFEPIME 1,000 MG in SODIUM CHLORIDE 0.9% 100 ML IV STA (17:57)
[2022-01-03 18:20] LABS: Bilirubin,Urine Negative (Negative); Blood, Urine Negative (Negative); Glucose,Urine (UA) Negative (Negative); Hyaline Casts,Urine 11 /LPF (0-3); Ketones,Urine Negative (Negative); Nitrite,Urine Negative (Negative); Protein,Urine Negative (Negative); RBC,Urine <1 /HPF (0-4); Squamous Epithelial Cell,Urine Occasional /HPF (0-10); Urine Appearance Clear (Clear); Urine Color Yellow (Yellow); Urine Specific Gravity 1.015 (1.001-1.035); Urine Urobilinogen 0.2 eU/dL (<2.0)
[2022-01-03] MEDS ORDERED: GLUCAGON 1 MG VIAL IM PRN (19:37)
[2022-01-03] MEDS ORDERED: DEXTROSE 10% 250 ML BAG IV PRN (19:37)
[2022-01-03] MEDS ORDERED: ACETAMINOPHEN 325 MG TABLET PO PRN (19:37)
[2022-01-03] MEDS ORDERED: ONDANSETRON 4 MG/2 ML VIAL IV PRN (19:37)
[2022-01-03] MEDS ORDERED: POLYETHYLENE GLYCOL POWDER 17 GM PACK PO PRN (19:39)
[2022-01-03] MEDS ORDERED: cefTRIAXone 1,000 MG in SODIUM CHLORIDE 0.9% 100 ML IV SCH (21:00)
[2022-01-04] MEDS: INSULIN REGULAR 100 UNIT/ML SUBCUT SCH ×5 (00:09→22:39)
[2022-01-04] MEDS: OXYBUTYNIN 5 MG TABLET PO SCH ×3 (00:23→22:38)
[2022-01-04] MEDS: SODIUM CHLORIDE 0.9% 1,000 ML IV SCH ×4 (00:23→22:40)
[2022-01-04] MEDS: ATORVASTATIN 10 MG TABLET PO SCH ×2 (00:23→22:38)
[2022-01-04] MEDS: ENOXAPARIN 40 MG/0.4 ML SYRINGE SUBCUT SCH ×2 (00:24→22:39)
[2022-01-04] MEDS: METOPROLOL SUCCINATE XL 100 MG TABLET PO SCH ×2 (00:24→22:38)
[2022-01-04] MEDS: SODIUM CHLORIDE 1 GM TABLET PO SCH ×3 (00:24→22:38)
[2022-01-04] MEDS: hydrALAZINE 20 MG/1 ML VIAL IV PRN ×2 (04:35→16:33)
[2022-01-04 04:50] LABS: Basophils # 0.1 10*3/uL (0.0-0.2); Basophils % 0.6 % (0.0-0.8); Eosinophils # 0.4 10*3/uL (0.0-0.87); Eosinophils % 3.5 % (0.00-10.9); Hematocrit 37.6 VOL% (35.7-47.0); Immature Granulocytes % 1.1 %; Immature Granulocytes Absolute 0.11 #; Lymphocytes # 2.5 10*3/uL (1.4-4.0); Lymphocytes % 24.8 % (21.3-54.2); Mean Corpuscular Volume 95.9 FL (87-102); Mean Platelet Volume 9.6 FL (9.6-12.0); Monocytes # 0.9 10*3/uL (0.11-0.8); Platelet Count 295 T/CUMM (130-400); Red Cell Distribution Width 12.3 % (9.3-17.3); White Blood Count 10.1 T/CUMM (4-12)
[2022-01-04 04:51] LABS: Hemoglobin 12.8 GM/DL (12.0-16.0); Red Blood Count 3.92 MC/CUMM (3.8-5.5)
[2022-01-04 05:21] LABS: Alanine Aminotransferase 32 U/L (13-56); Albumin 3.7 G/DL (3.4-5.0); Alkaline Phosphatase 107 U/L (45-117); Aspartate Amino Transferase 20 U/L (0-37); Bilirubin,Total < 0.39 MG/DL (0.20-1.00); Blood Urea Nitrogen 9 MG/DL (7-18); Calcium 9.2 MG/DL (8.5-10.1); Carbon Dioxide 26 MMOL/L (21-32); Chloride 102 MMOL/L (98-107); Cholesterol 148 MG/DL (50-200); Estimated Glom Filtration Rate 90 ML/MIN; Glucose 154 MG/DL (74-106); HDL Cholesterol 60 MG/DL (40-60); Osmolality,Calculated 267.4 MOS/KG (273-304); Potassium 3.4 MMOL/L (3.5-5.1); Risk Ratio 2.47; Sodium 133 MMOL/L (136-145); Total Protein 7.8 G/DL (6.4-8.2); Triglycerides 129 MG/DL (2-150); VLDL Cholesterol 25.8 MG/DL
[2022-01-04] MEDS ORDERED: FERROUS SULFATE 325 MG TABLET PO ONE (07:33)
[2022-01-04] MEDS: LEVOTHYROXINE 125 MCG TABLET PO SCH (07:35)
[2022-01-04] MEDS ORDERED: DEXTROSE 50% 25 GM/50 ML VIAL IV PRN (08:39)
[2022-01-04] MEDS: DOCUSATE SODIUM 100 MG CAPSULE PO SCH (09:50)
[2022-01-04] MEDS: DONEPEZIL 10 MG TABLET PO SCH (09:50)
[2022-01-04] MEDS: PANTOPRAZOLE 40 MG TABLET PO SCH (09:50)
[2022-01-04] MEDS: ASPIRIN EC 81 MG TABLET PO SCH (09:50)
[2022-01-04] MEDS: MEMANTINE 5 MG TABLET PO SCH (09:50)
[2022-01-04] MEDS: LOSARTAN 50 MG TABLET PO SCH (09:50)
[2022-01-04] MEDS: FERROUS SULFATE 325 MG TABLET PO SCH ×2 (09:50→22:37)
[2022-01-04] MEDS: MULTIVITAMIN (BEROCCA) TABLET PO SCH (09:50)
[2022-01-04] MEDS ORDERED: CALCIUM (CARBONATE)/VITAMIN D 600 MG-400 UNIT TABLET PO SCH (21:00)
[2022-01-05] MEDS: VITAMIN E 400 UNIT CAPSULE PO SCH ×2 (00:04→10:02)
[2022-01-05] MEDS: MULTIVITAMIN (CENTRUM) TABLET PO SCH ×2 (00:04→10:02)
[2022-01-05] MEDS: ASCORBIC ACID 500 MG TABLET PO SCH ×2 (00:04→10:01)
[2022-01-05] MEDS: SODIUM CHLORIDE 0.9% 1,000 ML IV SCH ×2 (04:02→12:34)
[2022-01-05 05:52] LABS: Calcium 8.2 MG/DL (8.5-10.1); Osmolality,Calculated 272.1 MOS/KG (273-304); Potassium 4.2 MMOL/L (3.5-5.1)
[2022-01-05] MEDS: LOSARTAN 50 MG TABLET PO SCH (09:58)
[2022-01-05] MEDS: SODIUM CHLORIDE 1 GM TABLET PO SCH (09:58)
[2022-01-05] MEDS: LEVOTHYROXINE 125 MCG TABLET PO SCH (10:00)
[2022-01-05] MEDS: ASPIRIN EC 81 MG TABLET PO SCH (10:01)
[2022-01-05] MEDS: MEMANTINE 5 MG TABLET PO SCH (10:01)
[2022-01-05] MEDS: OXYBUTYNIN 5 MG TABLET PO SCH (10:01)
[2022-01-05] MEDS: DOCUSATE SODIUM 100 MG CAPSULE PO SCH (10:02)
[2022-01-05] MEDS: MULTIVITAMIN (BEROCCA) TABLET PO SCH (10:02)
[2022-01-05] MEDS: FERROUS SULFATE 325 MG TABLET PO SCH (10:02)
[2022-01-05] MEDS: PANTOPRAZOLE 40 MG TABLET PO SCH (10:03)
[2022-01-05] MEDS: DONEPEZIL 10 MG TABLET PO SCH (10:03)
[2022-01-05] MEDS: INSULIN REGULAR 100 UNIT/ML SUBCUT SCH ×2 (10:03→12:34)
[2022-01-05 12:23] VITALS: BP 180/49
== END 2022-01-05 15:15 | disposition home health service (06) | DRG 640 ==
LOC: N.ED 16:02 → N.EDINP 20:20 → N.TELEN 01-04 21:13
PROVIDERS: ADMIT Emergency Medicine; ATTEND Emergency Medicine